=== PATIENT | female | born 1995 | race Caucasian/White ===

== ENCOUNTER → 2025-01-19 08:43 | Outpatient (REF) | payer BC, SELFPAY | LOC: PNTC 08:43 | PROVIDERS: ATTENDING PHYSICIAN Obstetrics & Gynecology | DX: Z36.0 Encounter for antenatal screening for chromosomal anomalies (principal); Z36.82 Encounter for antenatal screening for nuchal translucency | CPT/HCPCS: 76801; 76813 ==

== ENCOUNTER 2025-03-28 07:01 | Emergency (ER) | payer BC, SELFPAY ==
[2025-03-28 07:13] VITALS: BP 117/84
--- NOTE | 2025-03-28 09:19 | ED.GENMED ---
History of Present Illness
General
Chief Complaint: Skin Problem
Time Seen by Provider: 03/28/25 09:09
History of Present Illness
History of Present Illness:
29-year-old female presents for evaluation of right thigh abscess. She is G1, P0 currently 22 weeks gestational age. Saw her STRATEGIC MANAGER yesterday and was started on clindamycin, there were gentle attempts to express the abscess but no incision and
drainage was performed. Culture swab from the abscess was sent and is in process currently. She is only taken 1 full day of clindamycin so far. Denies fevers or chills
Review of Systems
Review of Systems
Allergies reviewed?: Yes
All Other Systems: ROS reviewed and negative except as documented in HPI and ROS
Phy Exam
Physical Exam
Physical Exam:
GEN: Well appearing, NAD, WDWN
HEENT: Oral mucosa moist, no scleral icterus
Cardiac: Regular rate
Lung: No respiratory distress, no tachypnea
MSK: No gross deformity or injuries
Skin: Good color, no pallor or jaundice. 2 cm x 3 cm abscess to the right upper medial thigh with scant active purulent discharge
Neuro: AO x3, moves all extremities freely
Psych: Calm, cooperative
Course
Vital Signs
Initial and Last Documented VS:
Initial Vital Signs
Temp Pulse Resp BP Pulse Ox
97.6 F 119 16 117/84 98
03/28/25 07:13 03/28/25 07:13 03/28/25 07:13 03/28/25 07:13 03/28/25 07:13
Last Documented Vital Signs
Temp Pulse Resp BP Pulse Ox
97.6 F 119 16 117/84 98
03/28/25 07:13 03/28/25 07:13 03/28/25 07:13 03/28/25 07:13 03/28/25 07:13
Procedures
Incision/Drainage/Joint Aspiration
Right upper thigh:
Anethesia: 1% Lidocaine with Epi
Preparation: cleaned with Betadine
Type of procedure: incise and drain
Nature of site: abscess
Description of abscess: greater than 3cm
Loculations broken up: Yes
How much fluid was obtained?: large amount
Fluid description: purulent
Treatment: left open for drainage
MDM/Problems Addressed
MDM/Problems Addressed:
Bedside I&D performed with good results, patient will be continued on clindamycin pending previously obtained culture test. Educated on supportive care. Patient was noted to be mildly tachycardic but clinically well-appearing with no signs of
sepsis and this appears to be a confined abscess with no significant surrounding cellulitis. No indication for labs or IV antibiotics
*Pulse Oximetry
Patient hypoxic: no
*Critical Care Note
Total Time (30-74mins, 75-104mins- exclusive of procedures): Not Applicable
ED Attending Note
-
Portions of this chart may have been created with voice recognition software.� Occasional wrong word or��sound alike� substitutions may have occurred due to the inherent limitations of voice recognition software.
Discharge Plan
Departure
Patient Disposition: Home (Routine Discharge)
Date of Disposition: 03/28/25
Time of Disposition: 09:35
Patient with high blood pressure during this ER visit?: No
Discharge Problem:
Abscess of thigh
Instructions: Skin Abscess
Activity Restrictions/Additional Instructions:
Warm compresses and/or warm showers several times daily
Rinse with soap and water before changing bandage
Change bandage as often as needed, minimum of once per day
Continue clindamycin until culture tests return
Interventions
Interventions:
*Risk Screen - Suicide Last Done: 03/28/25 07:13
*General Assessment Last Done: 03/28/25 10:27
*Neglect/Abuse Screening Last Done: 03/28/25 07:13
*ED- Fall Risk Assessment Last Done: 03/28/25 10:27
*ED COVID-19 Vaccine History Last Done: 03/28/25 10:27
*Nursing Disposition Last Done: 03/28/25 10:27
ED-Skin Assessment Last Done: 03/28/25 10:26
Discharge Date and Time
Discharge Date/Time: 03/28/25 10:50
Print Language: TUVALUAN
== END 2025-03-28 10:50 | disposition home or self-care (01) ==
LOC: EMR 07:01
PROVIDERS: EMERGENCY PHYSICIAN Emergency Medicine
DX: O99.712 Diseases of the skin and subcutaneous tissue complicating pregnancy, second trimester (principal); L02.415 Cutaneous abscess of right lower limb; Z3A.22 22 weeks gestation of pregnancy
CPT/HCPCS: 10060; 99282

== ENCOUNTER → 2025-05-18 07:56 | Outpatient (REF) | payer BC, SELFPAY ==
--- NOTE | 2025-05-13 08:13 | PN.DIAED06 ---
Meal Plan - Gestational
- Breakfast
Gestational Diabetes Meal Plan Name: 2000 calories
Breakfast - Total Carbohydrate (grams): 45 (1 carb = 15 grams)
Breakfast - Starch Carbohydrate: 2 (carbs = starch, fruit, milk)
Breakfast - Fruit Carbohydrate: 0 (no fruit or juice before lunch)
Breakfast - Milk Carbohydrate: 1
Breakfast - Nonstarchy Vegetables: Yes
Breakfast - Meat/Protein: 1 (protein = 1 ounce/7g)
Breakfast - Fat: 2 (fat = 5g)
- Morning Snack
Morning Snack - Total Carbohydrate (grams): 30 (no fruit or juice before lunch)
Morning Snack - Starch Carbohydrate: 1
Morning Snack - Fruit Carbohydrate: 0
Morning Snack - Milk Carbohydrate: 1
Morning Snack - Nonstarchy Vegetables: Yes
Morning Snack - Meat/Protein: 0
Morning Snack - Fat: 0
- Lunch
Lunch - Total Carbohydrate (grams): 45
Lunch - Starch Carbohydrate: 1
Lunch - Fruit Carbohydrate: 1
Lunch - Milk Carbohydrate: 1
Lunch - Nonstarchy Vegetables: Yes
Lunch - Meat/Protein: 2
Lunch - Fat: 2
- Afternoon Snack
Afternoon Snack - Total Carbohydrate (grams): 30
Afternoon Snack - Starch Carbohydrate: 1
Afternoon Snack - Fruit Carbohydrate: 1
Afternoon Snack - Milk Carbohydrate: 0
Afternoon Snack - Nonstarchy Vegetables: Yes
Afternoon Snack - Meat/Protein: 1
Afternoon Snack - Fat: 0
- Dinner
Dinner - Total Carbohydrate (grams): 45
Dinner - Starch Carbohydrate: 2
Dinner - Fruit Carbohydrate: 1
Dinner - Milk Carbohydrate: 0
Dinner - Nonstarchy Vegetables: Yes
Dinner - Meat/Protein: 2
Dinner - Fat: 2
- Evening Snack
Evening Snack - Total Carbohydrate (grams): 45
Evening Snack - Starch Carbohydrate: 1
Evening Snack - Fruit Carbohydrate: 1
Evening Snack - Milk Carbohydrate: 1
Evening Snack - Nonstarchy Vegetables: Yes
Evening Snack - Meat/Protein: 1
Evening Snack - Fat: 0
--- NOTE | 2025-05-18 09:35 | PN.DE ---
Diabetes Education
- -
05/18/2025 GESTATIONAL DIABETES EDUCATION
Met with patient today for medical nutrition therapy. G1, P01, currently at 29 weeks of gestation, with an NEHAL of 07/29/2025.
Explained glucose metabolism in body and what occurs during to cause increase blood sugar. Discussed importance of keeping BS well controlled to avoid complications to the baby during and after (macrosomia, hypoglycemia). Discussed
macronutrients, provided with 2000 calorie GDM meal plan. States she has counted macronutrients in the past.
Discussed the importance of physical activity in helping to lower glucose, and to eat a snack prior to exercise if glucose is < 100 mg/dL. She currently walks, attends yoga and occasionally kick-boxes.
She presented to the appointment with the Accu-Chek Guide glucometer and supplies.
Reviewed proper testing technique, testing sites and testing pattern, her BS today was 85 after a morning snack. She is aware to test FBS and 2 hr pp each meal. Expected results for FBS <95 mg/dl and 2 hr pp <120 mg/dl. Log sheet provided for her
to record results, she will send a 3-day meal log with all her FBG and 2hr Post prandial glucose numbers to this office for review. In addition, [facility]
She was encouraged to reach out should she require insulin.
== END ==
LOC: DES 07:56
PROVIDERS: ATTENDING PHYSICIAN Obstetrics & Gynecology
DX: O24.419 Gestational diabetes mellitus in pregnancy, unspecified control (principal)
CPT/HCPCS: 99078

== ENCOUNTER → 2025-05-21 15:42 | Outpatient (REF) | payer BC, SELFPAY | LOC: PNTC 15:42 | PROVIDERS: ATTENDING PHYSICIAN Obstetrics & Gynecology | DX: O24.419 Gestational diabetes mellitus in pregnancy, unspecified control (principal) | CPT/HCPCS: 76816 ==

== ENCOUNTER → 2025-06-16 07:56 | Outpatient (REF) | payer BC, SELFPAY | LOC: PNTC 07:56 | PROVIDERS: ATTENDING PHYSICIAN Obstetrics & Gynecology | DX: O24.430 Gestational diabetes mellitus in the puerperium, diet controlled (principal) | CPT/HCPCS: 76816 ==

== ENCOUNTER → 2025-07-14 09:53 | Outpatient (REF) | payer BC, SELFPAY | LOC: PNTC 09:53 | PROVIDERS: ATTENDING PHYSICIAN Obstetrics & Gynecology | DX: O24.410 Gestational diabetes mellitus in pregnancy, diet controlled (principal) | CPT/HCPCS: 76816 ==

== ENCOUNTER 2025-07-29 19:25 | Inpatient (IN) | payer BC, SELFPAY ==
[2025-07-29 19:28] VITALS: BMI 29.1
[2025-07-29 19:58] LABS: Glucose - Point of Care 102 mg/dl (70-99)
[2025-07-29 20:03] LABS: Hematocrit 34.9 % (37.0-47.0); Hemoglobin 12.5 g/dL (12.0-16.0); Mean Corp Hgb Conc. 35.8 g/dL (33.0-37.0); Mean Corpuscular Volume 85.3 fL (81.0-99.0); Nucleated Red Blood Cells % 0 %; Platelet Count 204 10^3/uL (130-400); Red Cell Dist. Width 13.9 % (11.5-14.5)
[2025-07-29] MEDS: CYTOTEC 50 MICROGRAM VAG (20:08)
[2025-07-29 20:19] VITALS: BP 121/73
[2025-07-29] MEDS: LR 1000 IV (23:24)
[2025-07-30] MEDS: LR 1000 IV ×3 (02:00→14:20)
[2025-07-30] MEDS: CYTOTEC PO ×4 (02:01→14:10)
[2025-07-30] MEDS: CYTOTEC 25 MICROGRAM PO (04:40)
[2025-07-30 05:51] LABS: Glucose - Point of Care 79 mg/dl (70-99)
[2025-07-30] MEDS: SUBLIMAZE 100 MCG EPIDURAL (09:15)
[2025-07-30] MEDS: FENTANYL/BUPIVACAINE 100 EPIDURAL (09:16)
[2025-07-30] MEDS: BICITRA 30 ML PO (10:43)
[2025-07-30] MEDS: TYLENOL 975 MG PO (10:43)
[2025-07-30] MEDS: ANCEF 10 IV (11:10)
[2025-07-30] MEDS: ZITHROMAX INFUSION 250 IV (11:18)
[2025-07-30] MEDS: PITOCIN 30 UNITS/NSS 500 ML IV (12:00)
[2025-07-30 12:04] LABS: Cord ABG B.E. - POC -5.4 mmol/L; Cord ABG HCO3 - POC 22 mmol/L; Cord ABG O2 Sat % - POC 37.1 %; Cord ABG pCO2 - POC 47 mmHg; Cord ABG pH - POC 7.27; Cord ABG pO2 - POC 25 mmHg
[2025-07-30 12:10] LABS: Cord VBG B.E. - POC -2.7 mmol/L; Cord VBG HCO3 - POC 23 mmol/L; Cord VBG O2 Sat % - POC 45.5 %; Cord VBG pCO2 - POC 42 mmHg; Cord VBG pH - POC 7.35; Cord VBG pO2 - POC 26 mmHg
[2025-07-30] MEDS: TORADOL 15 MG IV ×2 (17:29→23:47)
[2025-07-30] MEDS: COLACE 100 MG PO (20:17)
[2025-07-31 04:29] LABS: Hematocrit 31.3 % (37.0-47.0); Hemoglobin 11.2 g/dL (12.0-16.0); Mean Corp Hgb Conc. 35.8 g/dL (33.0-37.0); Mean Corpuscular Volume 87.4 fL (81.0-99.0); Platelet Count 197 10^3/uL (130-400); Red Cell Dist. Width 13.6 % (11.5-14.5)
[2025-07-31] MEDS: TORADOL 15 MG IV ×2 (05:44→12:00)
--- NOTE | 2025-07-31 08:09 | W.PN.ANS.POP ---
Anesthesia Post Operative
- Anesthesia Post Op Note
Vital Signs Stable-See Nursing Note: Yes
Airway Patent: Yes
Adequate Pain Control: Yes
Change in Mental Status: No
Current Postoperative Nausea & Vomiting: No
Anesthesia Complications: No
General Anesthetic Recall: No
Unplanned Admission: No
Post Op Hydration Adequate: Yes
[2025-07-31] MEDS: PRENATAL PLUS 1 TABLET PO (08:22)
[2025-07-31] MEDS: COLACE 100 MG PO ×2 (08:23→20:08)
[2025-07-31 13:41] LABS: Syphilis/T. pallidum Ab Reflex Negative (Negative)
[2025-07-31] MEDS: MYLICON 80 MG PO (14:22)
[2025-07-31] MEDS: TYLENOL 650 MG PO (16:59)
[2025-07-31] MEDS: MOTRIN 600 MG PO (17:00)
[2025-08-01] MEDS: MOTRIN 600 MG PO ×4 (03:25→20:55)
[2025-08-01] MEDS: TYLENOL 650 MG PO ×2 (03:26→20:54)
[2025-08-01] MEDS: COLACE 100 MG PO ×2 (08:09→20:54)
[2025-08-01] MEDS: PRENATAL PLUS 1 TABLET PO (08:10)
[2025-08-02] MEDS: TYLENOL 650 MG PO (03:39)
[2025-08-02] MEDS: MOTRIN 600 MG PO (03:39)
[2025-08-02] MEDS: PRENATAL PLUS 1 TABLET PO (08:45)
[2025-08-02] MEDS: COLACE 100 MG PO (08:45)
--- NOTE | 2025-08-02 09:28 | CM ---
Patient seen at bedside in [facility]. CM received call regarding consult for patient with post depression assessment having high score. Patient states that she sees a therapist and has a plan for supports, patient asking for a zoloft script from
physician and states that she feels she has a plan and will follow up with pricing director and her therapist. CM spoke with Nurse and update provided. CM will continue to follow for discharge planning needs.
Plan; home with follow up with therapist/pricing director.
--- NOTE | 2025-08-02 10:34 | W.DS.TRANS ---
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
-
Discharge Instructions:
Discharge Diagnosis/Procedures section
Instructions:
Stand-Alone Forms: [facility] Delivery
Changes to Home Medications: No
Discharge Medications:
DC Medications w/original date entered in [facility]
blood sugar diagnostic (Accu-Chek Guide test strips) #200 ea 05/13/25
blood-glucose meter (Accu-Chek Guide Glucose Meter) #1 ea 05/13/25
lancets (Accu-Chek Softclix Lancets) #200 ea 05/13/25
1 tab PO DAILY Supplement 07/29/25
acetaminophen 325 mg tablet 650 mg (2 x 325 mg) PO Q4HPRN PRN mild pain #0 tabs 08/02/25
docusate sodium 100 mg capsule 100 mg PO BID #0 caps 08/02/25
ibuprofen 600 mg tablet 600 mg PO Q6HPRN PRN cramps #30 tabs 08/02/25
sennosides 8.6 mg tablet (Lauren-mary ann) 17.2 mg (2 x 8.6 mg) PO HSPRN PRN constipation #0 tabs 08/02/25
sertraline 25 mg tablet 25 mg PO DAILY #30 tabs 08/02/25
simethicone 80 mg chewable tablet 80 mg PO TIDPRN PRN flatulence #0 tabs 08/02/25
Home Medication Changes
Pending Results: No
Total time spent discharging patient (in min): 20
[2025-08-02] MEDS: ZOLOFT 25 MG PO (10:53)
== END 2025-08-02 11:50 | disposition home or self-care (01) | DRG 788 ==
LOC: LDRP 19:25
PROVIDERS: Obstetrics & Gynecology; ADMITTING PHYSICIAN Obstetrics & Gynecology
PROC: 3E0P7VZ Introduction of Hormone into Female Reproductive, Via Natural or Artificial Opening (ICD-10-PCS; 2025-07-29)
PROC: 10D00Z1 Extraction of Products of Conception, Low, Open Approach (ICD-10-PCS; 2025-07-30)
PROC: 6A550ZT Pheresis of Cord Blood Stem Cells, Single (ICD-10-PCS; 2025-07-30)
DX: O48.0 Post-term pregnancy (principal); Z3A.40 40 weeks gestation of pregnancy; Z37.0 Single live birth; O24.420 Gestational diabetes mellitus in childbirth, diet controlled; O76 Abnormality in fetal heart rate and rhythm complicating labor and delivery; O69.0XX0 Labor and delivery complicated by prolapse of cord, not applicable or unspecified; O99.344 Other mental disorders complicating childbirth; F41.9 Anxiety disorder, unspecified; Z79.899 Other long term (current) drug therapy
CPT/HCPCS: 36415; 82962; 85025; 85027; 86780; 86850; 86900; 86901; 88307